=== PATIENT | female | born 1930 | race Caucasian/White ===

== ENCOUNTER 2016-12-14 04:22 | Inpatient (IN) ==
[2016-12-14] MEDS ORDERED: ZOFRAN IV ONE (04:30)
[2016-12-14 04:59] LABS: MANUAL DIFF NEEDED? NO
[2016-12-14 05:01] LABS: BASO% 0.2 % (0.0-0.8); EOS# 0.02 X1000 (0.0-0.7); EOS% 0.4 % (0.0-10.0); HEMATOCRIT 38.8 % (37.0-47.0); HEMOGLOBIN 12.6 g/dL (12.0-16.0); LYMPH# 0.44 X1000 (1.2-3.4); LYMPH% 7.8 % (20.5-51.1); MCH 29.9 PG (27-31); MCHC 32.5 g/dL (33-37); MCV 91.9 FL (81-99); MONO# 0.49 X1000 (0.11-0.59); MONO% 8.7 % (1.7-9.3); MPV 10.2 FL (7.4-10.4); NEUT% 82.9 % (42.2-75.2); PLT 114 X1000 (130-400); RBC 4.22 XMIL (4.2-5.4)
[2016-12-14 05:22] LABS: ALBUMIN 3.4 g/dL (3.5-5.0); CALCIUM 8.3 mg/dL (8.8-10.2); POTASSIUM 3.3 mmol/L (3.5-5.1); TOTAL BILIRUBIN 0.6 mg/dL (0.20-1.00)
[2016-12-14] MEDS ORDERED: NS 1,000 ML IV ONE (05:38)
--- NOTE | 2016-12-14 05:38 | PROVIDER DOCUMENTATION ---
HPI-Abdominal Pain/GI Problem - General Chief Complaint: Abdominal Pain Time Seen by Provider: 12/14/16 04:40 Source: patient, family Allergies/Adverse Reactions: Patient Allergies Allergy/AdvReac Type Severity Reaction Status Date / Time Sulfa (Sulfonamide Allergy Unknown Verified 09/06/16 00:11 Antibiotics) Home Medications: Home Medication List Medication Instructions Recorded Confirmed Last Taken Type Aspirin 1 tab PO DAILY 02/09/16 09/05/16 02/09/16 History Famotidine 20 mg PO DAILY 02/09/16 09/05/16 02/09/16 History Gemfibrozil 600 mg PO HS 02/09/16 09/05/16 02/08/16 History Levothyroxine [Synthroid] 50 microgm PO DAILY 02/09/16 09/05/16 02/09/16 History [place]-3 Fatty Acids/Fish Oil [Fish 1 cap PO DAILY 02/09/16 09/05/16 02/09/16 History Oil 1,000 mg Softgel] Ropinirole [Requip] 1 mg PO DAILY 02/09/16 09/05/16 02/08/16 History Valsartan/Hydrochlorothiazide 1 each PO DAILY 02/09/16 09/05/16 02/09/16 History [Valsartan-Hctz 160-12.5 mg Tab] Levofloxacin [Levaquin] 500 mg PO DAILY #7 tablet 09/06/16 Unknown Rx - History of Present Illness-ABD Nature of Presenting Problems: has had some 3 vomiting spells no blood no diarrhea Abdominal Pain Onset Location: reports: LLQ Pain Radiation: reports: no radiation Quality of Pain: reports: aching, fullness Severity in ED: reports: mild Onset/Duration: reports: 2 days ago Timing: reports: still present Activities at Onset: reports: sleep Exposure to sick contacts?: No Modifying Factors: improves with: other medication Associated Symptoms: reports: constipation, loss of appetite, nausea, vomiting Last BM: 2 days ago Dark Stools Present?: reports: none noticed Rectal Bleeding: reports: none # of Diarrhea Episodes: 0 Rectal Pain: reports: none # of Vomiting Episodes: 3 Emesis Description: reports: none Bruising or Bleeding Gums?: No Similar Symptoms Previously?: No Recently seen or treated by another doctor?: No Review of Systems - Adult - REVIEW OF SYSTEMS - ADULT Constitutional: reports: no symptoms reported, chills, fever Eyes: reports: no symptoms reported Ears, Nose, Mouth & Throat: reports: no symptoms reported Cardiovascular: reports: no symptoms reported Respiratory: reports: no symptoms reported Gastrointestinal: reports: see HPI Genitourinary: reports: see HPI. denies: dysuria, hematuria Musculoskeletal: reports: no symptoms reported Integumentary: reports: no symptoms reported Neurological: reports: no symptoms reported Psychiatric: reports: no symptoms reported Endocrine: reports: no symptoms reported Hematologic/Lymphatic: reports: no symptoms reported Past History - Adult - PAST MEDICAL HISTORY-ADULT Review of Records: reports: Old Records Reviewed, Medications Reviewed, Social history reviewed & non-contributory. Major Childhood Illnesses: reports: denies history Cardiovascular: reports: denies history Respiratory: reports: denies history Gastrointestinal: reports: denies history Obstetrical/Gynecological: reports: denies history Genitourinary: reports: denies history Musculoskeletal: reports: denies history Neurological: reports: denies history Endocrine/Immune: reports: denies history Other Conditions: reports: denies history - IMMUNIZATION STATUS Childhood Immunizations: See Nurse Assessment Flu Vaccine: See Nurse Assessment - FAMILY HISTORY Family History: reviewed, not pertinent Physical Exam-General - PHYSICAL EXAM-ADULT Initial Vital Signs Reviewed: Yes - CONSTITUTIONAL General Appearance: appears well - HEAD, EARS, NOSE, MOUTH & THROAT HENMT: normal ENT inspection - NECK Neck: full range of motion - RESPIRATORY Respiratory: lungs clear, no respiratory distress - CARDIOVASCULAR Cardiovascular: regular rate, rhythm - GASTROINTESTINAL (ABDOMEN) Abdominal Exam: normal bowel sounds, non tender, soft, tenderness - LYMPHATIC Lymphatic: no adenopathy - MUSCULOSKELETAL Back Exam: normal inspection, no CVA tenderness Extremity: normal range of motion DTR: ankle (R): 1+, ankle (L): 1+ - SKIN Integumentary: normal color, normal turgor - NEUROLOGIC Neurologic: grossly normal - PSYCHIATRIC Psych/Mental Status: oriented x 3 Progress - PLAN OF CARE/RESULTS Progress/Plan/Lab Results: Vital Signs - 8 hr 12/14/16 04:24 12/14/16 05:19 Temperature 100.1 F H Pulse Rate 109 H 83 Respiratory Rate 18 20 Blood Pressure 111/066 115/63 O2 Sat by Pulse Oximetry 91 L 99 Laboratory Results - last 24 hr 12/14/16 12/14/16 04:50 04:50 WBC 5.62 RBC 4.22 Hgb 12.6 Hct 38.8 MCV 91.9 MCH 29.9 MCHC 32.5 L RDW Std Deviation 15.0 H Plt Count 114 L MPV 10.2 Immature Gran % (Auto) 0.0 Neut % (Auto) 82.9 H Lymph % (Auto) 7.8 L Baker % (Auto) 8.7 Eos % (Auto) 0.4 Baso % (Auto) 0.2 Immature Gran # (Auto) 0.00 Neut # (Auto) 4.66 Lymph # (Auto) 0.44 L Baker # (Auto) 0.49 Eos # (Auto) 0.02 Baso # (Auto) 0.01 Sodium 141 Potassium 3.3 L Chloride 105 Carbon Dioxide 22 L Anion Gap 15 BUN 24 H Creatinine 1.4 H Estimated GFR/1.73 m2 36 BUN/Creatinine Ratio 17 Glucose 134 H Calculated Osmolality 287 Calcium 8.3 L Total Bilirubin 0.60 AST 24 ALT 10 Alkaline Phosphatase 84 Total Protein 6.0 L Albumin 3.4 L Globulin 3.0 Albumin/Globulin Ratio 1.0 Amylase 47 Lipase 67 H Orders Category Date Time Status Saline Loc DIRECTED Care 12/14/16 04:33 Active NPO Diet 12/14/16 04:33 Active FLAT/UPRIGHT ABD/1 VIEW CHEST [RAD] Stat Exams 12/14/16 05:32 Ordered AMYLASE [CHEM] Stat Lab 12/14/16 04:50 Completed CBC WITH ELECTRONIC DIFF [HEME] Stat Lab 12/14/16 04:50 Completed COMPREHENSIVE METABOLIC PANEL [CHEM] Stat Lab 12/14/16 04:50 Completed LIPASE [CHEM] Stat Lab 12/14/16 04:[address] W/POSS RFLX CULT [URINALYSIS] Stat Lab 12/14/16 04:55 Received Ondansetron [Zofran] Med 12/14/16 04:30 Discontinued 4 mg IV NOW ONE Result Diagrams: 12/14/16 04:50 12/14/16 04:50 - REASSESSMENT Reassessment #1 Time Reassessed: 07:06 Status: improving (Took over pt's care at 6AM. Pt was examined. Pt was resting comfortably. LLQ tenderness on exam. Two daughter's at bedside. 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 Pt denies CP and no cardiac history. CT A+P ordered.) - XRAY 1 XRAY Study: Chest, Abdomen Impression: Abnormal XRAY Interpretation: Cannot r/o LLL slight infiltrates. - CT/MRI 1 MRI Study: Abdomen, Pelvis, other (Reports pending on admission) - CONSULTS/PCP/HOSPITALIST Notification #1 *Consult/PCP/Hospitalist*: Lupe Time Discussed: 07:49 Consult Disposition: Will see in ED, Admit Departure - Departure Date of Disposition Decision: 12/14/16 Time of Disposition Decision: 07:49 DIAGNOSIS: Fever, LLQ abdominal pain Disposition: ADMITTED INPATIENT 09 Certified Medical Emergency: Emergent Condition: Stable Referrals and Follow-Ups: None,PCP [Primary Care Provider] - - Critical Care Note This patient required my direct & personal management of CC.: No Attestation - Physician/ DEVIN Attestation Patient care was provided by Advanced Practice Provider:: No
[2016-12-14] MEDS ORDERED: NS 1,000 ML ONE (05:58)
[2016-12-14 06:02] LABS: BILIRUBIN URINE NEGATIVE (NEGATIVE); BLOOD URINE NEGATIVE (NEGATIVE); CLARITY CLEAR (CLEAR); COLOR YELLOW; GLUCOSE URINE NEGATIVE (NEGATIVE); LEUKOCYTES URINE TRACE (NEGATIVE); NITRITE URINE NEGATIVE (NEGATIVE); UROBILINOGEN URINE NORMAL
[2016-12-14 06:03] LABS: PROTEIN URINE TRACE mg/dL (NEGATIVE)
[2016-12-14 06:06] LABS: URINE CAST NONE SEEN /LPF; URINE CRYSTAL NONE SEEN /HPF; URINE CULTURE PL NEEDED? YES; URINE EPITHELIAL CELLS <10 /HPF (<10); URINE RBC <10 /HPF (<10); URINE SOURCE CLEAN CATCH; URINE WBC <10 /HPF (<10)
[2016-12-14] MEDS ORDERED: TYLENOL PO ONE (07:50)
--- NOTE | 2016-12-14 08:04 | Diag Imaging Result Doc PS360 ---
RENAL STONE SEARCH - 12/14/2016 INDICATION: LLQ pain TECHNIQUE: A CT dose reduction protocol was used. COMPARISON: 11/15/2016 FINDINGS: Stable mild fibrotic changes in the lung bases. Stable irregular contour to the liver compatible with cirrhosis. Stable significant splenomegaly. Stable large renal cyst at the upper pole of the left kidney. No radiodense renal stones. No hydronephrosis or hydroureter. Gallbladder is very distended. No calcified gallstones or free fluid. No bowel obstruction or inflammation. Stable adenopathy in the gastrohepatic ligament. There are moderate degenerative changes of the spine. No acute or suspicious bony lesion. IMPRESSION: 1. Significant dilation of the gallbladder on today's exam. Correlate for possible cholecystitis. A right upper quadrant ultrasound may be helpful if this is a possibility. 2. No findings to explain left lower quadrant abdominal pain. 3. Other findings are stable from prior including cirrhosis and splenomegaly. Electronically signed by Ambrocio Kim 12/14/2016 8:01 AM
--- NOTE | 2016-12-14 08:11 | Diag Imaging Result Doc PS360 ---
FLAT/UPRIGHT ABD/1 VIEW CHEST - 12/14/2016 INDICATION: Abdominal pain TECHNIQUE: Three views COMPARISON: 09/06/2016, 02/09/2016 FINDINGS: There is some stable mild pulmonary fibrosis in the lung bases. No new or focal infiltrates. No pneumothorax or pleural effusion. Heart size and pulmonary vascularity is top normal. There is a nonobstructive bowel gas pattern. No free air or abnormal calcifications. IMPRESSION: No acute disease or change from prior. Electronically signed by Ambrocio Kim 12/14/2016 8:09 AM
[2016-12-14] MEDS ORDERED: VANCOMYCIN IV PER PHARMACY MISC SCH ×2 (08:15→09:06)
[2016-12-14] MEDS: NS 1,000 ML IV SCH ×2 (08:24→21:50)
[2016-12-14] MEDS ORDERED: VANCOMYCIN 1,500 MG in NS 250 ML IV ONE (09:00)
[2016-12-14] MEDS ORDERED: ZOFRAN IV PRN (09:06)
[2016-12-14] MEDS ORDERED: NS 1,000 ML IV SCH (09:06)
--- NOTE | 2016-12-14 16:50 | Extremity Venous Study ---
EXAM: Venous U/S Bilateral Legs INDICATION: LLE edema, calf pain TECHNIQUE: COMPARISON: None. FINDINGS: There are no discrete filling defects identified in the right or left lower extremity deep venous systems. There is normal Doppler flow, compressibility, and augmentation involving the femoral vein, superficial femoral vein, popliteal vein, posterior tibial vein, and peroneal veins, bilaterally. The right and left great saphenous veins are grossly patent. IMPRESSION: No evidence of deep venous thrombosis. Electronically signed by Ronak Sanchez 12/14/2016 4:48 PM
[2016-12-15] MEDS: SYNTHROID PO SCH (06:11)
[2016-12-15 06:47] LABS: HEMATOCRIT 34.1 % (37.0-47.0); HEMOGLOBIN 10.8 g/dL (12.0-16.0); MCH 29.8 PG (27-31); MCHC 31.7 g/dL (33-37); MCV 94.2 FL (81-99); MPV 10.6 FL (7.4-10.4); RBC 3.62 XMIL (4.2-5.4)
[2016-12-15 07:05] LABS: ALBUMIN 2.6 g/dL (3.5-5.0); POTASSIUM 3.3 mmol/L (3.5-5.1); TOTAL BILIRUBIN 0.7 mg/dL (0.20-1.00); TOTAL PROTEIN 5.2 g/dL (6.3-8.3)
--- NOTE | 2016-12-15 08:34 | PROGRESS NOTE ---
DATE: 12/15/2016 SUBJECTIVE: The patient notes that she may be feeling a little bit better. Denies any chest pain or palpitations currently. Denies any fevers or chills. OBJECTIVE: Vital Signs: Reviewed. She is afebrile, temp 98 degrees, pulse 58, respiratory rate 18, BP 104/38. General: Patient is awake, alert. Currently in no respiratory distress. HEENT: Normocephalic, atraumatic. Neck: Supple. CV: Regular rate. Chest: Clear. Abdomen: Soft, nondistended. Extremities: Moves all extremities. Neurologic: No focal changes. Skin: Seems to have a little bit less erythema on her lower extremities. No pain. Nontender to the touch. ASSESSMENT: 1. Moderate protein calorie malnutrition. 2. Cellulitis. 3. Left lower quadrant abdominal pain, appears to be improving. 4. Abnormal gallbladder by ultrasound, although patient has no complaints of right upper quadrant pain. PLAN: We will continue antibiotics. Continue to follow. Further orders as needed. cc: Pablo Andrade MD
[2016-12-15] MEDS ORDERED: [UNRECOGNIZED DRUG - OTHER] PO SCH (09:00)
[2016-12-15] MEDS: REQUIP PO SCH (09:04)
[2016-12-15] MEDS: VITAMIN B-12 PO SCH (09:04)
[2016-12-15] MEDS: ASPIRIN PO SCH (09:04)
[2016-12-15] MEDS: NS 1,000 ML IV SCH (16:22)
[2016-12-16] MEDS: NS 1,000 ML IV SCH (05:48)
[2016-12-16] MEDS: SYNTHROID PO SCH (06:22)
[2016-12-16] MEDS: VITAMIN B-12 PO SCH (09:01)
[2016-12-16] MEDS: REQUIP PO SCH (09:01)
[2016-12-16] MEDS: KEFLEX PO SCH ×2 (09:01→20:17)
[2016-12-16] MEDS: ASPIRIN PO SCH (09:01)
--- NOTE | 2016-12-16 09:01 | PROGRESS NOTE ---
DATE: 12/16/2016 SUBJECTIVE: The patient notes she is feeling a lot better this morning. Denies any abdominal pain. States her leg is feeling better. Denies any fevers or chills. OBJECTIVE: Vital Sign: Temp 98, pulse 55, respiratory rate 18, BP 132/48, saturation 100% on 2 L. General: The patient is awake and alert. She is currently in no respiratory distress. Pleasant to talk with. Neck: Supple. CV: Regular rate. Chest: Clear. Abdomen: Soft, nondistended. No tenderness. Extremities: Moves all extremities. Skin: She has much less erythema on the left lower extremity. ASSESSMENT: 1. Abdominal pain, appears resolved. 2. Cellulitis, left lower extremity, improved. 3. Moderate protein calorie malnutrition, stable. PLAN: Will continue antibiotics. Continue to follow. Hopefully home in the next 1 to 2 days. cc: Pablo Andrade MD
--- NOTE | 2016-12-16 09:02 | HISTORY AND PHYSICAL ---
CHIEF COMPLAINT: Abdominal pain, nausea and vomiting. HISTORY OF PRESENT ILLNESS: This is an 86-year-old female who presented to the emergency room complaining of abdominal pain, nausea and vomiting. The patient is very vague about the pain. She is vague about description of the pain. In fact, during my exam she complained of some slight epigastric tenderness to palpation only. Of note, her abdomen was soft and nondistended with good bowel sounds. She does state that she vomited. She reports 3 spells, although she is very vague over how long of a period these 3 spells were. She denies any black or bloody vomitus or stools. She did state she had a bowel movement 2 days prior which was normal. She has had regular bowel movements. She does state that she has had some waxing and waning left lower quadrant aching or fullness. On review of her chart, this has been a pretty well consistent complaint back to what looks like [address] scans revealing hepatomegaly, splenomegaly, probably early cirrhosis, and interstitial scarring and fibrosis in the lung bases. She did have a gastric emptying study in October of 2016 with a T1/2 calculated at 1 hour and 40 minutes, which is just slightly above normal range. Her white count was within normal limits. She was afebrile. In the emergency room she was given 1 L of fluid as well as Tylenol and Zofran and she is being admitted for further evaluation and treatment. PAST MEDICAL HISTORY: Diabetes mellitus, hyperlipidemia, hypertension, hypothyroid, history of pneumonia, splenomegaly, hepatomegaly. PAST SURGICAL HISTORY: Denies. SOCIAL HISTORY: Denies alcohol, tobacco, or illicit drug use. ALLERGIES: Sulfa which causes an unknown reaction. HOME MEDICATIONS: B12 2500 mcg daily, Darvon 65 daily, aspirin 81 mg daily, Synthroid 50 mcg daily, Requip 1 mg daily. REVIEW OF SYSTEMS: A 14 point review of systems is discussed with patient with pertinent positives stated in the HPI. She denied chest pain, palpitations, dizziness, syncope, shortness of breath, PND, orthopnea, fever, chills, black or bloody vomitus, black or bloody stools, any constipation, diarrhea, or any problems. PHYSICAL EXAMINATION: GENERAL: This is an 86-year-old female who is lying in the bed in no distress. VITAL SIGNS: Blood pressure is 142/42 with a heart rate of 58, respirations 19, temperature is 98.4 degrees oral with O2 saturations of 96-100 on 2 L nasal cannula. HEENT: Head is normocephalic, atraumatic. Pupils equal, round, and reactive to light. EOMs are intact. Sclerae anicteric. Mucous membranes are dry. NECK: Supple. Trachea midline. CARDIOVASCULAR: Regular rate and rhythm. S1, S2 appreciated. No rubs, murmurs, or gallops. PULMONARY: Breath sounds are clear. Chest rises and falls symmetrically with respiration. No increased work of breathing noted. GASTROINTESTINAL: Abdomen is soft and nondistended with a little tenderness at the epigastric area to palpation. Bowel sounds in all 4 quadrants. EXTREMITIES: No clubbing, cyanosis, or edema. Calves are nontender. Pulses are palpable x4. MUSCULOSKELETAL: Good range of motion of joints. NEUROLOGIC: She is alert and oriented x3. Cranial nerves 2 through 12 are grossly intact. EXTREMITIES: No clubbing or cyanosis. She does have some trace pretibial edema to her lower extremities with petechiae and some warmth and redness to her left lower extremity about mid recio down to the ankle. She does state this is a new finding over the last 2-3 days. DIAGNOSTICS: WBC is 5.6 with hemoglobin 12.6, hematocrit 38.8, and platelets of 114,000. INR is 1. Sodium 141, potassium 3.3, BUN is 24, creatinine 1.4 with a glucose of 134. Urinalysis is essentially negative. Abdominal x-ray reveals no acute disease or change from prior to 02/09/2016 with some stable mild pulmonary fibrosis in the lung bases. No new focal infiltrates and no pneumothorax or pleural effusion. Heart size and pulmonary vascularity are top normal with a nonobstructive bowel gas pattern and no free air or abnormal calcifications. Blood cultures and urine culture are pending. ASSESSMENT: 1. Moderate protein calorie malnutrition. 2. Cellulitis of left lower extremity. 3. Abdominal pain. 4. Abnormal gallbladder by ultrasound, although the patient has no complaints. 5. Hypokalemia. 6. Acute kidney injury most likely secondary to dehydration. 7. Diabetes mellitus. 8. Hypothyroidism. PLAN: She will be admitted to the hospital and placed on telemetry. She will be placed on a diabetic diet. We will pattern blood glucose with sliding scale insulin. We will identify her home medications and continue as appropriate. Blood cultures and urine cultures were obtained. We will give 1 gram of vancomycin. We will obtain a lower extremity Doppler. We will obtain a TSH. Further treatment is pending hospital course. Dictated by PAULA De La Rosa for Pablo Andrade MD cc: PAULA De La Rosa MD
[2016-12-16] MEDS: VANCOMYCIN 1,350 MG in NS 250 ML IV SCH (10:19)
--- NOTE | 2016-12-16 14:26 | VASCULAR LAB ---
PROCEDURE NAME: Arterial Bilateral Legs - 12/14/2016 REQUESTING PHYSICIAN: Lupe. ARCHITECTURAL PROJECT CAPTAIN: Natalia. INDICATION: Ulcer. FINDINGS: Segmental pressures are as follows: Right brachial 130, left 121. Right distal thigh 159, left 168. Right popliteal 181, left 195. Right dorsalis pedis 149, left . Posterior tibial 154, left 157. Right great toe 55, left 59. Right KEKE 1.18, left 1.21. Right TBI 0.42, left 0.45. Waveform analysis: Waveforms appear to be diminished bilaterally at the level of toes but there is a monophasic waveform noted, again this starts to be diminished at the level of the ankle bilaterally. INTERPRETATION: Likely peripheral vascular disease with falsely elevated ABIs noted bilaterally. This likely is a distal peripheral vascular disease starting at the level of the calf distally. cc: MD Jennifer Chilel CRNP
[2016-12-16] MEDS ORDERED: CITRATE OF MAGNESIA PO ONE (15:23)
[2016-12-16] MEDS ORDERED: ZOFRAN ODT PO PRN (18:40)
[2016-12-17] MEDS: SYNTHROID PO SCH (06:07)
[2016-12-17] MEDS: VITAMIN B-12 PO SCH (08:55)
[2016-12-17] MEDS: REQUIP PO SCH (08:56)
[2016-12-17] MEDS: KEFLEX PO SCH ×2 (08:56→20:32)
[2016-12-17] MEDS: ASPIRIN PO SCH (08:56)
--- NOTE | 2016-12-17 13:08 | PROGRESS NOTE ---
DATE: 12/17/2016 SUBJECTIVE: Patient states she is feeling well better today. She has no abdominal pain or leg pain. No fevers or chills. OBJECTIVE: Vital Signs: Blood pressure is 133/42 with a heart rate of 58, respirations are 18, temperature is 98.9 degrees oral with room air sats 92-94%. Cardiovascular: Regular rate and rhythm. S1, S2 appreciated. Pulmonary: Breath sounds are clear. No increased work of breathing noted. Gastrointestinal: Abdomen is soft, nontender, nondistended. Bowel sounds in all 4 quadrants. Extremities: No clubbing, cyanosis, or edema. She does have less erythema noted on the left lower extremity. ASSESSMENT AND PLAN: 1. Abdominal pain resolved. 2. Cellulitis left lower extremity improving. 3. Moderate protein calorie malnutrition. Stable. 4. Diabetes mellitus. Stable. 5. Acute kidney injury. This is secondary to dehydration. Stable. 6. Hypothyroidism. We will continue her current regimen. We will have the patient out of bed more. Hopefully home in the next day or 2. Dictated by PAULA De La Rosa for Pablo Andrade MD cc: PAULA De La Rosa MD
--- NOTE | 2016-12-17 13:29 | Diag Imaging Result Doc PS360 ---
US ABDOMEN-COMPLETE - 12/17/2016 INDICATION: eval GB TECHNIQUE: Rogers scale, color Doppler, and duplex evaluation of the abdomen was performed. COMPARISON: None FINDINGS: The liver appears normal in size and echotexture. No focal masses are appreciated. The IVC and aorta appear normal. The pancreas is unremarkable. The gallbladder is free of stones and sludge has a normal caliber wall. It appears mildly distended. The common bile duct measures 6 mm mm. The portal vein is patent with hepatopetal flow. There is mild splenomegaly. The spleen measures 14 x 6 x 14 mm.. The kidneys demonstrate mild cortical thinning bilaterally which may indicate medical renal disease. There is a 9 cm simple cyst upper pole left kidney. There is no hydronephrosis. IMPRESSION: 1.Mild splenomegaly. 2.Large left renal cyst. 3.Mildly prominent gallbladder. No cholelithiasis. Electronically signed by Lata Younger 12/17/2016 1:27 PM
--- NOTE | 2016-12-17 17:05 | PROGRESS NOTE ---
DATE: 12/17/2016 SUBJECTIVE: The patient states overall she is feeling better. Denies any chest pain, palpitations. States her abdominal pain is better. Denies any pain in her leg. OBJECTIVE: Vital Signs: Reviewed and stable. General: She is awake, alert. She is in no respiratory distress. She is pleasant to talk with. Neck: Supple. Cardiovascular: Regular rate. Chest: Clear. Abdomen: Soft, relatively nondistended, nontender. No masses. Positive bowel sounds. Extremities: Moves all extremities. Neurologic: No changes. ASSESSMENT: 1. Abdominal pain. Her left lower quadrant pain appears improved. Her recent CT suggested the need for an ultrasound on her abdomen due to an abnormal gallbladder. We will keep her n.p.o. this morning, check an ultrasound of the gallbladder. Hopefully, she can discharge home soon. 2. Fever. Her temperature has gone back up to 100.3. Uncertain etiology, that is the reason we are rechecking her gallbladder, to see if this has any effect. 3. Urinary tract infection. 4. Lower extremity cellulitis, resolved. 5. Left lower quadrant pain, resolved. PLAN: As noted, check an ultrasound of her abdomen, and continue to follow. cc: Pablo Andrade MD
[2016-12-18] MEDS: SYNTHROID PO SCH (06:27)
[2016-12-18 08:04] VITALS: BP 165/50
[2016-12-18] MEDS: KEFLEX PO SCH (08:27)
[2016-12-18] MEDS: ASPIRIN PO SCH (08:27)
[2016-12-18] MEDS: VITAMIN B-12 PO SCH (08:27)
[2016-12-18] MEDS: REQUIP PO SCH (08:28)
[2016-12-18] MEDS: VANCOMYCIN 1,350 MG in NS 250 ML IV SCH (10:33)
--- NOTE | 2016-12-18 16:29 | DISCHARGE SUMMARY ---
ADMISSION DATE: 12/14/2016 DISCHARGE DATE: 12/18/2016 DIAGNOSES: 1. Abdominal pain resolved. 2. Fever resolved. 3. Lower extremity cellulitis resolved. 4. Left lower quadrant pain resolved. 5. Hypokalemia resolved. 6. Acute kidney injury resolved. 7. Diabetes mellitus. 8. Hypothyroidism. DIAGNOSTICS: 12/14/2016 abdominal x-ray revealed no acute disease. 12/14/[address] revealed significant dilatation of the gallbladder on today's exam. Recommend a right upper quadrant ultrasound. No findings to explain the left lower quadrant abdominal pain. Stable cirrhosis and splenomegaly. Gallbladder is distended, No calcified gallstones or free fluid. 12/14/2016 extremity arterial study revealed likely peripheral vascular disease with falsely elevated ABIs noted likely a distal peripheral vascular disease starting level of the calf distally. 12/14/2016 extremity venous study revealed no deep vein thrombosis in either extremity. 12/17/2016 abdominal ultrasound revealed splenomegaly, large left renal cyst, mildly prominent gallbladder, no cholelithiasis. Microbiology. Blood cultures x2 revealed no growth after 48 hours. Urine culture revealed no growth. HOSPITAL COURSE: Ms. Boucher presented to the emergency room with abdominal pain, nausea, vomiting. She had abdominal pain resolved, nausea, vomiting resolved with admission. CT scan as well as right upper quadrant ultrasound revealed dilated gallbladder with no cholelithiasis, her abdomen is nondistended and nontender. She has been eating with no complaints of nausea or vomiting. She was noted to have some petechiae and warmth and redness to her left lower extremity from about midshin down to ankle and a family member stated this is a new finding over last 2-3 days. Venous ultrasounds as well as the arterial Dopplers were performed, there was no evidence of clot. Arterial Doppler revealed some maybe peripheral vascular disease. She was given Keflex, IV vancomycin as well as p.o. Keflex. This has resolved. Thankfully she is well better and she is ready to go home. DISCHARGE PHYSICAL EXAMINATION: Cardiovascular: Regular rate and rhythm S1, S2 appreciated. Pulmonary: Breath sounds are clear. No increased work of breathing noted. Gastrointestinal: Abdomen soft, nontender, nondistended with bowel sounds in all 4 quadrants. Extremities: No clubbing, cyanosis or edema, calves are nontender. Pulses are palpable x4. DISCHARGE MEDICATIONS: Vitamin B12 2500 mcg daily, Darvon 65 mg daily, aspirin daily, Synthroid 50 mcg daily, [place]-3 fatty acids 1 cap daily, Requip 1 mg daily, Keflex 500 mg p.o. q.12 hours for 4 days. FOLLOWUP: She is to follow up her primary care physician in the next 1-2 weeks sooner if needed. She is being discharged home in stable condition with family members. TIME SPENT: This is a greater than 30 minute discharge. Dictated by PAULA De La Rosa for Pablo Andrade MD cc: PAULA De La Rosa MD
== END 2016-12-18 11:30 | disposition home health service (06) ==
LOC: P.MEDSURG 04:22 → P.ED 04:22 → OBSVTOIN 08:52
PROVIDERS: ADMIT Family Medicine; ATTEND Family Medicine

== ENCOUNTER 2018-08-12 18:24 | Inpatient (IN) ==
--- NOTE | 2018-08-12 19:05 | Diag Imaging Result Doc PS360 ---
EXAM: CHEST-2 VIEWS - 08/12/2018 HISTORY: cough copd fever TECHNIQUE: Chest two views COMPARISON: 12/01/2017 FINDINGS: Heart size is normal. There is a tiny right pleural effusion which has decreased. There is a small left pleural effusion which has decreased. There is a tiny loculated pneumothorax component associated with the chronic left pleural effusion. There is mild prominence of lower lung interstitial markings which is decreased. There is no dense consolidation seen. IMPRESSION: Chronic pleural effusions, largest on the left, which have decreased. There is a tiny loculated pneumothorax component associated with the left pleural effusion. Mild prominence of lower lung interstitial markings which is decreased. No dense consolidation. Electronically signed by Darek Butler 08/12/2018 7:03 PM
[2018-08-12 19:49] LABS: BILIRUBIN URINE NEGATIVE (NEGATIVE); BLOOD URINE NEGATIVE (NEGATIVE); CLARITY CLEAR (CLEAR); COLOR YELLOW; GLUCOSE URINE NEGATIVE (NEGATIVE); KETONE URINE NEGATIVE (NEGATIVE); LEUKOCYTES URINE NEGATIVE (NEGATIVE); NITRITE URINE NEGATIVE (NEGATIVE); PROTEIN URINE NEGATIVE (NEGATIVE); UROBILINOGEN URINE NORMAL
[2018-08-12 19:51] LABS: BASO# 0.03 X1000 (0.0-0.2); BASO% 1.3 % (0.0-0.8); EOS# 0.01 X1000 (0.0-0.7); EOS% 0.4 % (0.0-10.0); HEMATOCRIT 32.3 % (37.0-47.0); HEMOGLOBIN 10.2 g/dL (12.0-16.0); LYMPH% 59.6 % (20.5-51.1); MCH 29.5 PG (27-31); MCHC 31.6 g/dL (33-37); MCV 93.4 FL (81-99); MONO# 0.45 X1000 (0.11-0.59); MONO% 19.1 % (1.7-9.3); MPV 10.4 FL (7.4-10.4); NEUT# 0.46 X1000 (1.4-6.5); NEUT% 19.6 % (42.2-75.2); PLT 94 X1000 (130-400); RBC 3.46 XMIL (4.2-5.4); RDW 15.6 % (11.5-14.5); WBC 2.35 X1000 (4.8-10.8)
[2018-08-12 19:57] LABS: LYMPHS 60 % (21-51); MONO 16 % (1-9); SEGS 24 % (42-75)
[2018-08-12 19:58] LABS: URINE RBC <10 /HPF (<10); URINE SOURCE CLEAN CATCH
[2018-08-12 20:04] LABS: ALBUMIN 3.4 g/dL (3.5-5.0); CALCIUM 8.4 mg/dL (8.8-10.2); POTASSIUM 4.5 mmol/L (3.5-5.1); TOTAL BILIRUBIN 0.3 mg/dL (0.20-1.00); TOTAL PROTEIN 6.2 g/dL (6.3-8.3)
[2018-08-12] MEDS ORDERED: MAXIPIME 2 GM in NS 100 ML IV ONE (20:11)
--- NOTE | 2018-08-12 20:22 | PROVIDER DOCUMENTATION ---
HPI-Fever - General Chief Complaint: Fever Stated Complaint: FEVER Time Seen by Provider: 08/12/18 18:58 Source: patient, family Allergies/Adverse Reactions: Patient Allergies Allergy/AdvReac Type Severity Reaction Status Date / Time Sulfa (Sulfonamide Allergy Unknown Verified 11/16/17 13:01 Antibiotics) Home Medications: Home Medication List Medication Instructions Recorded Confirmed Last Taken Type Aspirin 81 mg PO DAILY 02/09/16 11/29/17 11/16/17 History Levothyroxine [Synthroid] 50 microgm PO DAILY@0700 02/09/16 11/29/17 11/16/17 History Harlan-3 Fatty Acids/Fish Oil [Fish 1 cap PO DAILY 02/09/16 11/29/17 11/16/17 History Oil 1,000 mg Softgel] Pantoprazole [Protonix] 40 mg PO DAILY@0700 06/06/17 11/29/17 11/16/17 History Potassium Chloride 10 meq PO DAILY 06/06/17 11/29/17 11/16/17 History Cyanocobalamin (Vitamin B-12) 2,500 mcg SL DAILY 08/16/17 11/29/17 11/16/17 History [B-12] Albuterol 2.5MG/Ipratrop 0.5MG 1 vial INH Q4H PRN PRN 11/16/17 11/29/17 11/16/17 History [Duoneb (A & A)] Famotidine 20 mg PO BID 11/16/17 11/29/17 11/16/17 History Magnesium Hydroxide [Milk of 30 ml PO QAM PRN PRN 11/16/17 11/29/17 Unknown History Magnesia] Apixaban [Eliquis] 2.5 mg PO BID #120 tab 11/21/17 11/29/17 Unknown Rx Diltiazem C.d. [Cardizem Cd] 120 mg PO DAILY #120 cap 11/21/17 11/29/17 Unknown Rx Furosemide [Lasix] 40 mg PO DAILY #90 tab 11/21/17 11/29/17 Unknown Rx Levofloxacin [Levaquin] 500 mg PO DAILY #5 tab 12/03/17 Unknown Rx - History of Present Illness-Fever Nature of Presenting Problem: Patient is a 87 year old white female with history of pancytopenia, followed by Dr. De Leon, and history of pneumonia who presents with low grade fever of 99.3, cough, and shortness of breath since last night. Also followed by Dr. Andrade. Review of Systems - Adult - REVIEW OF SYSTEMS - ADULT Constitutional: reports: chills, fever Eyes: reports: no symptoms reported Ears, Nose, Mouth & Throat: reports: throat pain Cardiovascular: denies: chest pain Respiratory: reports: cough. denies: excessive sputum production Gastrointestinal: reports: see HPI. denies: vomiting Genitourinary: denies: dysuria Musculoskeletal: reports: see HPI Integumentary: denies: rash Neurological: reports: no symptoms reported Psychiatric: reports: no symptoms reported Endocrine: reports: no symptoms reported Hematologic/Lymphatic: reports: no symptoms reported Allergic/Immunologic: reports: no symptoms reported All Other Systems: Reviewed and Negative Past History - Adult - PAST MEDICAL HISTORY-ADULT Review of Records: reports: Old Records Reviewed, Nursing Assessment Review, Medications Reviewed, Social history reviewed & non-contributory. Major Childhood Illnesses: reports: denies history, other (pancytopenia) Cardiovascular: reports: CHF, HTN, hyperlipidemia Respiratory: reports: pneumonia Gastrointestinal: reports: denies history Obstetrical/Gynecological: reports: denies history Genitourinary: reports: denies history Musculoskeletal: reports: denies history Neurological: reports: denies history Psychiatric: reports: denies history Endocrine/Immune: reports: Diabetes, thyroid disorder Other Conditions: reports: denies history - PRIOR SURGERIES/PROCEDURES Surgical/Procedure History: reports: none - IMMUNIZATION STATUS Childhood Immunizations: See Nurse Assessment Flu Vaccine: See Nurse Assessment - FAMILY HISTORY Family History: reviewed, not pertinent Physical Exam-General - PHYSICAL EXAM-ADULT Initial Vital Signs Reviewed: Yes - CONSTITUTIONAL General Appearance: alert, no apparent distress, cachetic - EYES Eyes: other (clear) - HEAD, EARS, NOSE, MOUTH & THROAT HENMT: moist mucous membranes, normal ENT inspection, TMs normal - NECK Neck: non-tender, full range of motion, supple - RESPIRATORY Respiratory: decreased breath sounds, wheezing (notable expiratory wheezes over right lung base) - CARDIOVASCULAR Cardiovascular: regular rate, rhythm - GASTROINTESTINAL (ABDOMEN) Abdominal Exam: soft, no pulsatile mass, tenderness (vague tenderness). negative: guarding, rebound - LYMPHATIC Lymphatic: no adenopathy, axilla node tender - MUSCULOSKELETAL Back Exam: normal inspection, no CVA tenderness Extremity: normal range of motion, non-tender Peripheral Pulses: radial (R): 2+, radial (L): 2+ - SKIN Integumentary: normal color, normal turgor, warm/dry - NEUROLOGIC Neurologic: grossly normal - PSYCHIATRIC Psych/Mental Status: anxious Progress - PLAN OF CARE/RESULTS Progress/Plan/Lab Results: Vital Signs - 8 hr 08/12/18 18:31 08/12/18 19:28 Temperature 99.6 F 98.8 F Pulse Rate 63 61 Respiratory Rate 18 20 Blood Pressure 104/69 147/65 O2 Sat by Pulse Oximetry 97 93 L Laboratory Results - last 24 hr 08/12/18 08/12/18 08/12/18 19:25 19:25 19:35 WBC 2.35 L RBC 3.46 L Hgb 10.2 L Hct 32.3 L MCV 93.4 MCH 29.5 MCHC 31.6 L RDW Std Deviation 15.6 H Plt Count 94 L MPV 10.4 Immature Gran % (Auto) 0.0 Neut % (Auto) 19.6 L Lymph % (Auto) 59.6 H [place] % (Auto) 19.1 H Eos % (Auto) 0.4 Baso % (Auto) 1.3 H Immature Gran # (Auto) 0.00 Neut # (Auto) 0.46 L* Lymph # (Auto) 1.40 [place] # (Auto) 0.45 Eos # (Auto) 0.01 Baso # (Auto) 0.03 Segmented Neutrophils 24 L Lymphocytes 60 H Monocytes 16 H Sodium 142 Potassium 4.5 Chloride 102 Carbon Dioxide 30 Anion Gap 10 BUN 33 H Creatinine 1.0 H Estimated GFR/1.73 m2 52 BUN/Creatinine Ratio 33 Glucose 96 Calculated Osmolality 290 Calcium 8.4 L Total Bilirubin 0.30 AST 39 H ALT 17 Alkaline Phosphatase 218 H Total Protein 6.2 L Albumin 3.4 L Globulin 3.0 Albumin/Globulin Ratio 1.0 Urine Source CLEAN CATCH Urine Color YELLOW Urine Clarity CLEAR Urine pH 5.0 Ur Specific [place] 1.010 Urine Protein NEGATIVE Urine Ketones NEGATIVE Urine Blood NEGATIVE Urine Nitrite NEGATIVE Urine Bilirubin NEGATIVE Urine Urobilinogen NORMAL Urine Microscopic RBC <10 Urine WBC NEGATIVE Urine Glucose NEGATIVE Influenza A (Rapid) Influenza B (Rapid) Group A Strep Rapid 08/12/18 08/12/18 20:57 20:57 WBC RBC Hgb Hct MCV MCH MCHC RDW Std Deviation Plt Count MPV Immature Gran % (Auto) Neut % (Auto) Lymph % (Auto) [place] % (Auto) Eos % (Auto) Baso % (Auto) Immature Gran # (Auto) Neut # (Auto) Lymph # (Auto) [place] # (Auto) Eos # (Auto) Baso # (Auto) Segmented Neutrophils Lymphocytes Monocytes Sodium Potassium Chloride Carbon Dioxide Anion Gap BUN Creatinine Estimated GFR/1.73 m2 BUN/Creatinine Ratio Glucose Calculated Osmolality Calcium Total Bilirubin AST ALT Alkaline Phosphatase Total Protein Albumin Globulin Albumin/Globulin Ratio Urine Source Urine Color Urine Clarity Urine pH Ur Specific [place] Urine Protein Urine Ketones Urine Blood Urine Nitrite Urine Bilirubin Urine Urobilinogen Urine Microscopic RBC Urine WBC Urine Glucose Influenza A (Rapid) NEGATIVE Influenza B (Rapid) NEGATIVE Group A Strep Rapid NEGATIVE Orders Category Date Time Status Admit - [facility] Routine AdmDCTranf 08/12/18 20:41 Active Activity - Strict Bedrest ORDERED Care 08/12/18 20:41 Active Misc. NRSG Communication Order DIRECTED Care 08/12/18 20:36 Active Resuscitation Status Routine Care 08/12/18 20:41 Ordered Saline Loc DIRECTED Care 08/12/18 20:41 Active Vital Signs Order Q 4-HR ASSESS Care 08/12/18 20:41 Active Z-Document. for Tele Applied ORDERED Care 08/12/18 20:43 Active Neutropenic Diet Diet 08/12/18 20:36 Active CHEST-2 VIEWS [RAD] Stat Exams 08/12/18 18:35 Completed BLOOD CULTURE [BLDCUL] Stat Lab 08/12/18 20:44 Ordered CBC WITH ELECTRONIC DIFF [HEME] DAILY Lab 08/13/18 06:00 Ordered CBC WITH ELECTRONIC DIFF [HEME] DAILY Lab 08/14/18 06:00 Ordered CBC WITH ELECTRONIC DIFF [HEME] Stat Lab 08/12/18 19:25 Completed CMP [COMPREHENSIVE METABOLIC PANEL] [CHEM] Stat Lab 08/12/18 19:[address] Stat Lab 08/12/18 20:[address] Stat Lab 08/12/18 20:57 Completed LDH [CHEM] Stat Lab 08/12/18 19:25 Received urinalysis [URINALYSIS PL W/POSS RFLX CULT] [URINALYSIS Lab 08/12/18 19:35 Completed ] Stat CefEPIME [Maxipime] 2 gm Med 08/12/18 20:11 Discontinued 0.9% Sodium Chloride Inj [Ns] 100 ml IV NOW CefEPIME [Maxipime] 2 gm Med 08/12/18 20:45 Active 0.9% Sodium Chloride Inj [Ns] 100 ml IV Q12H Filgrastim [Neupogen] Med 08/12/18 20:32 Discontinued 300 microgm SUBQ NOW ONE Vancomycin 1 gm/Ns Med 08/12/18 20:34 Discontinued 1 gm in 250 ml IV NOW Oxygen Device Routine Oth 08/12/18 20:42 Active Telemetry [OM.EQ] Routine Oth 08/12/18 20:41 Active Transfer/Admit Order [TRANSFER] Routine Transfer 08/12/18 20:46 Ordered Result Diagrams: 08/12/18 19:25 08/12/18 19:25 - CONSULTS/PCP/HOSPITALIST Notification #1 *Consult/PCP/Hospitalist*: Dr. De Leon, HEM/ONC Time Discussed: 20:30 Reason/Comments: admit to hospitalist,give neupogen 300mcg, IV antibiotics Consult Disposition: Admit #2 Consult: Dr Andrade Time Discussed: 21:30 Consult Disposition: Admit Departure - Departure Date of Disposition Decision: 08/12/18 Time of Disposition Decision: 21:34 DIAGNOSIS: Pleural effusion, Pancytopenia Neutropenia Qualifiers: Neutropenia type: unspecified Qualified Code(s): D70.9 - Neutropenia, unspecified Fever Qualifiers: Fever type: unspecified Qualified Code(s): R50.9 - Fever, unspecified Disposition: ADMITTED INPATIENT 09 Certified Medical Emergency: Emergent Condition: Stable - Critical Care Note This patient required my direct & personal management of CC.: No Attestation - Physician/ DEVIN Attestation Patient care was provided by Advanced Practice Provider:: No The physician spent face to face time with patient:: Yes Advanced Practice Provider documentation review:: Supervising physician onsite and consulted in the evaluation and care of this patient. The physician did have a face to face encounter with the patient.
[2018-08-12] MEDS ORDERED: NEUPOGEN SUBQ ONE (20:32)
[2018-08-12] MEDS ORDERED: VANCOMYCIN 1 GM/NS 1 GM/250 ML IVPB IV ONE (20:34)
[2018-08-12] MEDS: MAXIPIME 2 GM in NS 100 ML IV SCH (20:58)
[2018-08-12 21:32] LABS: INFLUENZA A NEGATIVE (NEGATIVE); INFLUENZA B NEGATIVE (NEGATIVE)
[2018-08-13 07:56] LABS: BASO# 0.01 X1000 (0.0-0.2); BASO% 0.2 % (0.0-0.8); EOS# 0.02 X1000 (0.0-0.7); EOS% 0.3 % (0.0-10.0); HEMATOCRIT 29.6 % (37.0-47.0); HEMOGLOBIN 9.4 g/dL (12.0-16.0); IMM GRAN# 0.01 X1000 (0.0-0.04); IMM GRAN% 0.2 % (0.0-0.5); LYMPH% 25.3 % (20.5-51.1); MCH 29.3 PG (27-31); MCHC 31.8 g/dL (33-37); MCV 92.2 FL (81-99); MONO# 0.63 X1000 (0.11-0.59); MPV 10.4 FL (7.4-10.4); NEUT# 4.06 X1000 (1.4-6.5); PLT 83 X1000 (130-400); RBC 3.21 XMIL (4.2-5.4); RDW 15.4 % (11.5-14.5); WBC 6.33 X1000 (4.8-10.8)
[2018-08-13] MEDS: MAXIPIME 2 GM in NS 100 ML IV SCH ×2 (08:34→20:20)
[2018-08-13] MEDS ORDERED: GRANIX SUBQ ONE (09:30)
[2018-08-13 12:15] LABS: BASO# 0.02 X1000 (0.0-0.2); BASO% 0.2 % (0.0-0.8); EOS# 0.02 X1000 (0.0-0.7); EOS% 0.2 % (0.0-10.0); HEMATOCRIT 28.1 % (37.0-47.0); HEMOGLOBIN 8.9 g/dL (12.0-16.0); IMM GRAN# 0.07 X1000 (0.0-0.04); IMM GRAN% 0.7 % (0.0-0.5); LYMPH# 2.43 X1000 (1.2-3.4); LYMPH% 24.3 % (20.5-51.1); MCH 29.5 PG (27-31); MCHC 31.7 g/dL (33-37); MONO# 0.89 X1000 (0.11-0.59); MONO% 8.9 % (1.7-9.3); MPV 10.7 FL (7.4-10.4); NEUT# 6.56 X1000 (1.4-6.5); NEUT% 65.7 % (42.2-75.2); PLT 78 X1000 (130-400); RBC 3.02 XMIL (4.2-5.4); RDW 15.6 % (11.5-14.5); WBC 9.99 X1000 (4.8-10.8)
[2018-08-13] MEDS ORDERED: DUONEB (A & A) INH PRN (14:50)
[2018-08-13] MEDS ORDERED: NS 1,000 ML IV ONE (14:50)
[2018-08-13] MEDS ORDERED: VANCOMYCIN IV PER PHARMACY MISC SCH (15:00)
[2018-08-13 15:17] LABS: IRON SATURATION 20 %; TIBC 147 ug/dL; TOTAL IRON 29 ug/dL (49-151); UNBOUND IRON 118 ug/dL (112-346)
[2018-08-13] MEDS ORDERED: VANCOMYCIN 1,350 MG in NS 250 ML IV ONE (16:00)
[2018-08-13] MEDS: DUONEB (A & A) INH SCH ×3 (16:22→23:07)
--- NOTE | 2018-08-13 16:22 | HISTORY AND PHYSICAL ---
PRIMARY CARE PROVIDER: Dr. Andrade. ONCOLOGIST: Dr. De Leon. CHIEF COMPLAINT: Fever, cough, and shortness of breath. HISTORY OF PRESENT ILLNESS: Mrs. Boucher is an 87-year-old female with a history of chronic pleural effusions, recurrent pneumonia, hypertension, iron deficiency anemia, who presented to our ER yesterday evening with shortness of breath, fever, malaise x24 hours. She had a low-grade fever of 99.5 with worsening cough and shortness of breath. She came to the ER for evaluation. In the ER she was actually noted to be pancytopenic with a fever of 99.6. She was given broad spectrum antibiotics and Neupogen. Chest x-ray showed chronic pleural effusions, larger on the left, and tiny loculated pneumothorax component associated with the left pleural effusion. She was admitted with neutropenic fever. This morning she is feeling somewhat better. Her white count has gone up to normal range but her hemoglobin, hematocrit, and platelet count have all gone down. She is reporting worsening weight loss and poor p.o. intake. She is overall feeling better though. We are going to admit her for further treatment and evaluation. PAST MEDICAL HISTORY: 1. Recurrent bilateral pleural effusions. 2. History of iron deficiency anemia, requiring iron transfusion, followed by Dr. De Leon. 3. History of diastolic heart failure. 4. Diabetes mellitus, type 2. 5. Hypertension. 6. Hyperlipidemia. 7. Hypothyroidism. 8. Paroxysmal atrial fibrillation. PAST SURGICAL HISTORY: None. SOCIAL HISTORY: Does not smoke, drink, or use illicit substances. She lives with her daughter. FAMILY HISTORY: Noncontributory. REVIEW OF SYSTEMS: A 14-point review of systems was obtained and found to be negative with the exception of the HPI. ALLERGIES: Sulfonamides. HOME MEDICATIONS: Yet to be compiled by the nursing staff. PHYSICAL EXAMINATION: VITAL SIGNS: Blood pressure is 147/65, heart rate 61, respiratory rate 20, O2 saturation 97% on nasal cannula. Temperature is 98.8. GENERAL: This is an elderly and frail appearing 87-year-old female lying in hospital bed, in no acute distress. NEUROLOGICAL: She is awake and alert. Follows commands. No focal deficits. HEENT: Head is atraumatic and normocephalic. Pupils are equal, round and reactive to light. Oral mucosa is dry. NECK: Trachea is midline. CHEST: Decreased with crackles bilaterally. CARDIOVASCULAR: Regular rate and rhythm. S1 and S2 is noted. No murmurs. GASTROINTESTINAL: Soft. Nondistended. Bowel sounds are active. EXTREMITIES: No edema. Pulses are 1+ bilaterally. DIAGNOSTIC DATA: Chest x-ray see HPI. Labs this morning: WBC 9.99, hemoglobin 8.9, hematocrit 28.1, platelet count 78. Sodium 142, potassium 4.5, chloride 102, CO2 30, anion gap 10, BUN 33, creatinine 1, glucose is 96, calcium 8.4, AST is 39, ALT is 17, alkaline phosphatase 218. LDH 29. UA negative. Serology: Flu A, B, and Strep A is negative. ASSESSMENT AND PLAN: 1. Neutropenic fever: Presumably secondary to pneumonia. She has gotten Neupogen in the emergency room. Will continue vancomycin and cefepime. We have ordered blood cultures and sputum cultures. We will check another chest x-ray in the morning. Her vital signs are stable. 2. Presumed pneumonia: Continue antibiotics, breathing treatments, aggressive pulmonary toilet, and check a chest x-ray in the morning. 3. Chronic bilateral pleural effusions: Will follow. Overall they are stable as compared to her previous admission. If no improvement she may need CT and thoracentesis. 4. Pancytopenia: The patient has worsening anemia with worsening thrombocytopenia. We have ordered thyroid function and iron studies. Will transfuse if necessary. 5. Paroxysmal atrial fibrillation: Checking an EKG now. 6. Diabetes mellitus: Will follow patterned sugars and add sliding scale insulin. 7. Deep venous thrombosis prophylaxis with the Eliquis that she is on at home. Dictated by PAULA Delatorre for Pablo Andrade MD cc: PAULA Delatorre MD
--- NOTE | 2018-08-13 17:18 | EKG Report ---
Test Performed on : 08/13/2018 4:32:32 PM Test Reason : DYSPNEA Blood Pressure : / mmHG Vent. Rate : 067 BPM Atrial Rate : 067 BPM P-R Int : 354 ms QRS Dur : 138 ms QT Int : 388 ms P-R-T Axes : 078 248 -14 degrees QTc Int : 409 ms Sinus rhythm. with 1st degree AV block. 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 has replaced Atrial flutter. QRS duration has increased Questionable change in initial forces of Anteroseptal leads T wave inversion less evident in Inferior leads Unconfirmed Result
--- NOTE | 2018-08-13 19:25 | HISTORY AND PHYSICAL ---
ADDENDUM - HISTORY AND PHYSICAL: Patient seen and examined by myself. Full note dictated and discussed with nurse practitioner. Patient presented the hospital with low-grade fever. She does have a known history of cancer. She was noted to be neutropenic. She was given Granix while in the ER. Thankfully, her neutrophil count increased from 0.46 to 4.06. She has had no further fever. At this point, we will keep her in the hospital; however, continue antibiotics. We will recheck labs in the a.m. Await cultures and discharge home if normal. cc: Pablo Andrade MD
[2018-08-14] MEDS: DUONEB (A & A) INH SCH ×4 (03:37→15:00)
[2018-08-14 07:56] LABS: BASO# 0.01 X1000 (0.0-0.2); BASO% 0.1 % (0.0-0.8); EOS# 0.03 X1000 (0.0-0.7); EOS% 0.4 % (0.0-10.0); HEMATOCRIT 27.6 % (37.0-47.0); HEMOGLOBIN 8.6 g/dL (12.0-16.0); IMM GRAN# 0.08 X1000 (0.0-0.04); IMM GRAN% 0.9 % (0.0-0.5); LYMPH# 2.06 X1000 (1.2-3.4); LYMPH% 24.4 % (20.5-51.1); MCH 28.9 PG (27-31); MCHC 31.2 g/dL (33-37); MCV 92.6 FL (81-99); MONO% 7.1 % (1.7-9.3); MPV 10.6 FL (7.4-10.4); NEUT# 5.66 X1000 (1.4-6.5); NEUT% 67.1 % (42.2-75.2); PLT 71 X1000 (130-400); RBC 2.98 XMIL (4.2-5.4); RDW 15.6 % (11.5-14.5); WBC 8.44 X1000 (4.8-10.8)
[2018-08-14 08:03] LABS: AGAP 6; BUN 24 mg/dL (8-22); CALCIUM 7.8 mg/dL (8.8-10.2); CHLORIDE 109 mmol/L (98-107); COSMO 290; CREATININE 0.7 mg/dL (0.5-0.9); ESTIMATED GFR > 60; GLUCOSE 81 mg/dL (70-104); MAGNESIUM 1.8 mg/dL (1.5-2.7); POTASSIUM 3.5 mmol/L (3.5-5.1); SODIUM 144 mmol/L (136-145); TCO2 28 mmol/L (25-35)
[2018-08-14] MEDS ORDERED: MILK OF MAGNESIA PO PRN (08:31)
[2018-08-14] MEDS: MAXIPIME 2 GM in NS 100 ML IV SCH (08:54)
[2018-08-14] MEDS ORDERED: PEPCID PO SCH (09:00)
[2018-08-14] MEDS ORDERED: VITAMIN B-12 SL SCH (09:00)
[2018-08-14] MEDS ORDERED: LASIX PO SCH (09:00)
[2018-08-14] MEDS ORDERED: FISH OIL CONCENTRATE PO SCH (09:00)
[2018-08-14] MEDS ORDERED: ASPIRIN PO SCH (09:00)
[2018-08-14] MEDS ORDERED: ELIQUIS PO SCH (09:00)
[2018-08-14] MEDS ORDERED: KLOR-CON PO SCH (09:00)
[2018-08-14 10:14] LABS: FERRITIN 170 ng/mL (13-150)
[2018-08-14 15:45] VITALS: BP 139/44
--- NOTE | 2018-08-14 16:59 | Diag Imaging Result Doc PS360 ---
EXAM: CHEST-2 VIEWS 08/14/2018 HISTORY: hypoxia TECHNIQUE: PA and lateral chest COMMENT: There is opacity in the left costophrenic angle with elevation of the lateral hemidiaphragm similar in appearance to the previous examination of 08/12/2018. The small pneumothorax which was present at that time is no longer present. There is apical pleural calcification bilaterally. There is some ill-defined opacity in the right right costophrenic angle laterally as well which is unchanged since the previous study. Compared to 12/01/2017 both pleural fluid collections are smaller particularly the left. Overall otherwise are has been very little change. IMPRESSION: Chronic pleural thickening and loculated effusion on the left. Pleural thickening in the right costophrenic sulcus. Mild interstitial fibrosis. Electronically signed by Erik Solis 08/14/2018 4:57 PM
[2018-08-15] MEDS ORDERED: PROTONIX PO SCH (07:00)
[2018-08-15] MEDS ORDERED: SYNTHROID PO SCH (07:00)
--- NOTE | 2018-08-15 10:12 | DISCHARGE SUMMARY ---
ADMISSION DATE: 08/13/2018 DISCHARGE DATE: 08/14/2018 DISCHARGE DIAGNOSIS: Putative pneumonia, although chest x-ray does not completely confirm that. She has a chronic loculated effusion which has been there in August and November. HOSPITAL COURSE: In any case, the patient clinically has improved. Her vital signs improved. She had a little bit of a temperature at 100.5 degrees. That was yesterday morning. Overall, she is improved. She did receive 1 dose of filgrastim for possible pneumonia. Her repeat chest x-ray done today shows the same loculated effusion that was there, small pneumo was gone. Clinically, she looks well. She is afebrile, 99% on room air. I felt she was stable for discharge. She will follow up with Dr. Andrade. So far, everything looked okay. Her white count was stable at 8.4. I did discharge her on antibiotics which is Omnicef 300 p.o. b.i.d. for 7 days. She was given a Combivent inhaler. OTHER DISCHARGE MEDICATIONS: Aspirin 81 daily, vitamin B12 25 daily, Pepcid 20 b.i.d., omega-3 daily, potassium 20 daily, Protonix 40 daily, Synthroid 50 daily, and Lasix 40 daily. RECOMMENDATIONS: Followup chest x-ray in 1 to 2 weeks. Consider pulmonary evaluation. She sees Dr. De Leon as well, although I am a little unclear what he has been following her for, except I guess just iron infusion and she has a history of diastolic heart failure. May need to consider a thoracentesis if she is not much improved. She has had this done previously, although clinically, has overall improved. DISCHARGE CONDITION: Stable. A 32 minute discharge. cc: MD Pablo Bills MD Naveen T. Lobo, MD
[2018-08-15] MEDS ORDERED: VANCOMYCIN 1 GM/NS 1 GM/250 ML IVPB IV SCH (16:00)
== END 2018-08-14 18:48 | disposition home health service (06) | DRG 194 ==
LOC: P.ED 18:24 → P.MEDSURG 18:24 → SUATTDRO 08-13 13:30
PROVIDERS: ATTEND Internal Medicine
CPT/HCPCS: 71020; 71046; 80048; 80053; 81001; 82607; 82728; 82746; 82948; 83540; 83550; 83615; 83735; 85025; 87040; 87081; 87275; 87276; 87430; 87804; 93005; 94640; 94761; 96365; 96366; 96368; 96372; 96375; 99285; A9270; J0692; J1440; J1442; J3370; J7030; J7050; XXXXX

== ENCOUNTER 2018-08-31 14:24 | Inpatient (IN) ==
[2018-08-31] MEDS: ROCEPHIN 1 GM in NS 50 ML IV SCH (15:23)
[2018-08-31] MEDS: FLAGYL 500 MG/NS 500 MG/100 ML IVPB IV SCH ×2 (16:58→22:36)
[2018-08-31 18:42] LABS: BILIRUBIN URINE NEGATIVE (NEGATIVE); BLOOD URINE 1+ (NEGATIVE); CLARITY CLEAR (CLEAR); COLOR YELLOW; GLUCOSE URINE NEGATIVE (NEGATIVE); KETONE URINE NEGATIVE (NEGATIVE); LEUKOCYTES URINE NEGATIVE (NEGATIVE); NITRITE URINE NEGATIVE (NEGATIVE); PROTEIN URINE TRACE mg/dL (NEGATIVE); UROBILINOGEN URINE NORMAL
[2018-08-31 18:48] LABS: URINE SOURCE CLEAN CATCH
[2018-08-31] MEDS: DOXYCYCLINE 100 MG in NS 250 ML IV SCH (18:52)
[2018-08-31 18:55] LABS: URINE BACTERIA NEGATIVE /HFP; URINE CAST NONE SEEN /LPF; URINE CRYSTAL NONE SEEN /HPF; URINE EPITHELIAL CELLS <10 /HPF (<10); URINE RBC <10 /HPF (<10); URINE WBC <10 /HPF (<10); URINE YEAST NONE SEEN /HPF
[2018-09-01] MEDS: FLAGYL 500 MG/NS 500 MG/100 ML IVPB IV SCH ×4 (04:05→22:26)
[2018-09-01] MEDS: DOXYCYCLINE 100 MG in NS 250 ML IV SCH ×2 (06:44→18:31)
--- NOTE | 2018-09-01 07:25 | Diag Imaging Result Doc PS360 ---
CHEST-2 VIEWS - 09/01/2018 INDICATION: Pneumonia COMPARISON: 08/14/2018 FINDINGS: Stable trace right and small left pleural effusions. Stable mild infiltrate in the left lung base. Stable trace infiltrate or fibrosis in the peripheral right lung base. Heart size remains normal. IMPRESSION: No change from prior. Electronically signed by Ambrocio Kim 09/01/2018 7:23 AM
[2018-09-01 07:49] LABS: HEMATOCRIT 27.9 % (37.0-47.0); HEMOGLOBIN 8.6 g/dL (12.0-16.0); MCH 28.8 PG (27-31); MCHC 30.8 g/dL (33-37); MCV 93.3 FL (81-99); RBC 2.99 XMIL (4.2-5.4); RDW 15.2 % (11.5-14.5); WBC 2.45 X1000 (4.8-10.8)
[2018-09-01 08:03] LABS: ALBUMIN 2.8 g/dL (3.5-5.0); CALCIUM 8.3 mg/dL (8.8-10.2); POTASSIUM 3.7 mmol/L (3.5-5.1); TOTAL BILIRUBIN 0.2 mg/dL (0.20-1.00)
[2018-09-01] MEDS ORDERED: ZOFRAN ODT PO PRN (09:09)
[2018-09-01] MEDS ORDERED: MILK OF MAGNESIA PO PRN (09:09)
[2018-09-01] MEDS ORDERED: TYLENOL PO PRN (09:10)
[2018-09-01] MEDS ORDERED: ZOFRAN IV PRN (09:10)
[2018-09-01] MEDS: FOLIC ACID PO SCH ×2 (10:24→10:27)
[2018-09-01] MEDS: LASIX PO SCH (10:24)
[2018-09-01] MEDS: ASPIRIN PO SCH (10:25)
[2018-09-01] MEDS: SYNTHROID PO SCH (10:26)
[2018-09-01] MEDS: ELIQUIS PO SCH ×2 (10:26→21:38)
[2018-09-01] MEDS: CARAFATE PO SCH ×3 (16:05→21:38)
[2018-09-01] MEDS: ROCEPHIN 1 GM in NS 50 ML IV SCH (16:23)
--- NOTE | 2018-09-01 19:25 | PROGRESS NOTE ---
DATE: 09/01/2018 SUBJECTIVE: Patient states she may be feeling a little bit better. She is still having some cough, but denies any fever since admission. Denies any production to her cough. PHYSICAL EXAMINATION: Vital Signs: Reviewed. She is afebrile currently. Blood pressure is stable. Respiratory 20. She is currently on oxygen. General: Patient is awake, alert. She is pleasant to talk with. Appears to be at her baseline. Mild respiratory distress currently. HEENT: Normocephalic. Neck: Supple. Cardiovascular: Regular rate. Chest: Decreased, but equal. No crackles. No wheezing. Abdomen: Soft. Extremities: Moves all extremities. Neurologic: No changes. ASSESSMENT: 1. Nausea and vomiting, appears resolved. 2. Fever. She has been afebrile since admission. 3. History of pancytopenia, stable. 4. Bilateral pleural effusions, stable. PLAN: We will continue the patient in the hospital with antibiotic coverage until cultures are negative, and we will follow. cc: Pablo Andrade MD
--- NOTE | 2018-09-01 19:31 | HISTORY AND PHYSICAL ---
CHIEF COMPLAINT: Fever and cough. HISTORY OF PRESENT ILLNESS: The patient is an 87-year-old female who presented initially to the office with a 2- to 3-day history of cough, congestion, worsening shortness of breath, fever. The patient states that she was just in the hospital with pneumonia and had been feeling well upon discharge for a couple of days and then symptoms started back. Notes she has had fever for the last 2 or 3 days up to 101. SOCIAL HISTORY: Patient is . Lives at home. She is cared for by her daughter, son-in- law. She is retired. Lives in [place]. PAST MEDICAL HISTORY: She has recurrent and current bilateral pleural effusions, history of iron deficiency anemia requiring iron transfusions in the past by Dr. De Leon, diastolic heart failure, diabetes type 2, hypertension, hyperlipidemia, hypothyroidism, paroxysmal atrial fibrillation. FAMILY HISTORY: Noncontributory given her age. REVIEW OF SYSTEMS: As noted above, the patient has had increased cough, congestion, increased work of breathing, increased shortness of breath. For the past couple of days, she has had low- grade fevers. She has been unable to carry out her ADLs without max assistance. Denies any confusion, disorientation. Denies any falling. Denies dysuria, frequency, or urgency. Denies constipation, melena, hematochezia. MEDICATIONS: Do not have a complete accurate list of her home medications. We will adjust when verified. ALLERGIES: Sulfa causing a rash. PHYSICAL EXAMINATION: VITAL SIGNS: Reviewed. She is currently afebrile. Pulse in the 80s, respiratory 22, blood pressure is stable. GENERAL: She is awake, alert, very pleasant to talk with, but is somewhat ill-appearing. HEENT: Normocephalic. NECK: Supple. CARDIOVASCULAR: Regular rate. No murmurs. CHEST: Clear, nonlabored. ABDOMEN: Soft, nondistended. EXTREMITIES: Moves all extremities. ASSESSMENT: 1. Fever in a patient recently with pneumonia. 2. Recent neutropenic fever. 3. Chronic small appears to be stable bilateral pleural effusions. 4. History of pancytopenia. 5. Paroxysmal atrial fibrillation. 6. Diabetes. 7. Advanced age. 8. Febrile illness. PLAN: We will be admit the patient to the hospital, check her labs, place her on antibiotics, breathing treatments, oxygen, and we will follow. cc: Pablo Andrade MD
[2018-09-02] MEDS: FLAGYL 500 MG/NS 500 MG/100 ML IVPB IV SCH ×4 (05:00→22:31)
[2018-09-02] MEDS: PROTONIX PO SCH (06:14)
[2018-09-02] MEDS: DOXYCYCLINE 100 MG in NS 250 ML IV SCH ×2 (06:14→17:21)
[2018-09-02] MEDS: SYNTHROID PO SCH (06:14)
[2018-09-02 07:24] LABS: HEMOGLOBIN 9.1 g/dL (12.0-16.0); MCHC 31.4 g/dL (33-37); MCV 92.4 FL (81-99); RBC 3.14 XMIL (4.2-5.4); RDW 15.3 % (11.5-14.5); WBC 2.57 X1000 (4.8-10.8)
[2018-09-02 08:36] LABS: AGAP 7; ALBUMIN 2.7 g/dL (3.5-5.0); ALKALINE PHOSPHATASE 128 U/L (32-104); BUN 33 mg/dL (8-22); CHLORIDE 105 mmol/L (98-107); COSMO 289; CREATININE 0.8 mg/dL (0.5-0.9); ESTIMATED GFR > 60; GLUCOSE 82 mg/dL (70-104); GOT 21 U/L (10-30); GPT 9 U/L (10-36); POTASSIUM 3.7 mmol/L (3.5-5.1); SODIUM 142 mmol/L (136-145); TCO2 30 mmol/L (25-35); TOTAL PROTEIN 5.2 g/dL (6.3-8.3)
--- NOTE | 2018-09-02 10:19 | PROGRESS NOTE ---
DATE: 09/02/2018 SUBJECTIVE: Patient resting quietly in bed. Denies any problems at this time. States her cough has improved, but she still has a mild one that is nonproductive. OBJECTIVE: Vital Signs: Temperature 97.5 degrees, pulse 50, respirations 17, blood pressure 155/50, satting 100% on 2 L via nasal cannula. General: This is an 87-year-old female, lying in the bed and answers questions appropriately. HENT: Normocephalic, atraumatic. Normal ENT inspection. Oropharynx and nares are clear. Eyes: Pupils are equal, round, reactive to light and accommodation. Extraocular movements are intact. Neck: Normal inspection, normal range of motion. Lungs: Clear to auscultation bilaterally with equal lung expansion, chest wall movement. Heart: Regular rate and rhythm. No murmurs, rubs, or gallops. Abdomen: Soft, nontender, nondistended. Bowel sounds are present x4 quadrants. LABS: Showed a white blood cell count of 2.57, hemoglobin 9.1, hematocrit 29, platelets 105. Sodium 142, potassium 3.7, chloride 105, CO2 30. BUN of 33, creatinine 0.8, glucose of 82. ASSESSMENT: 1. Recent pneumonia. 2. Neutropenic fever, appears to be resolved. 3. History of pancytopenia. 4. Chronic small-appearing stable bilateral pleural effusions. PLAN: We continue the patient in hospital with antibiotic coverage, awaiting on cultures to be resulted. We will recheck a CBC and BMP in the a.m. Dictated by PAULA Gomez for Wil Isabel MD Addendum: Patient seen and examined by myself. Agree with PAULA note. It reflects my assessment and plan. cc: PAULA Gomez MD Gregory S. Cheatham, MD MTDD
[2018-09-02] MEDS: CARAFATE PO SCH ×4 (11:24→21:28)
[2018-09-02] MEDS: VITAMIN B-12 SL SCH (11:25)
[2018-09-02] MEDS: FISH OIL CONCENTRATE PO SCH (11:26)
[2018-09-02] MEDS: FOLIC ACID PO SCH (11:27)
[2018-09-02] MEDS: KLOR-CON PO SCH (11:27)
[2018-09-02] MEDS: ELIQUIS PO SCH ×2 (11:27→21:28)
[2018-09-02] MEDS: LASIX PO SCH (11:27)
[2018-09-02] MEDS: ASPIRIN PO SCH (11:27)
[2018-09-02] MEDS ORDERED: NS 50 ML ONE (13:34)
[2018-09-02] MEDS: ROCEPHIN 1 GM in NS 50 ML IV SCH (17:02)
[2018-09-03] MEDS: FLAGYL 500 MG/NS 500 MG/100 ML IVPB IV SCH ×4 (05:01→23:09)
[2018-09-03] MEDS: PROTONIX PO SCH (06:05)
[2018-09-03] MEDS: SYNTHROID PO SCH (06:05)
[2018-09-03] MEDS: DOXYCYCLINE 100 MG in NS 250 ML IV SCH ×2 (06:05→17:27)
[2018-09-03 08:35] LABS: AGAP 6; BUN 32 mg/dL (8-22); CALCIUM 7.9 mg/dL (8.8-10.2); CHLORIDE 108 mmol/L (98-107); COSMO 293; CREATININE 0.8 mg/dL (0.5-0.9); ESTIMATED GFR > 60; GLUCOSE 85 mg/dL (70-104); POTASSIUM 3.9 mmol/L (3.5-5.1); SODIUM 144 mmol/L (136-145); TCO2 30 mmol/L (25-35)
[2018-09-03 08:38] LABS: BASO# 0.01 X1000 (0.0-0.2); BASO% 0.5 % (0.0-0.8); EOS# 0.04 X1000 (0.0-0.7); EOS% 2.1 % (0.0-10.0); HEMATOCRIT 28.6 % (37.0-47.0); HEMOGLOBIN 9.1 g/dL (12.0-16.0); LYMPH# 1.01 X1000 (1.2-3.4); LYMPH% 52.6 % (20.5-51.1); MCH 29.3 PG (27-31); MCHC 31.8 g/dL (33-37); MONO% 20.8 % (1.7-9.3); MPV 10.8 FL (7.4-10.4); PLT 99 X1000 (130-400); RBC 3.11 XMIL (4.2-5.4); RDW 15.1 % (11.5-14.5); WBC 1.92 X1000 (4.8-10.8)
[2018-09-03 08:45] LABS: NEUT# 0.46 X1000 (1.4-6.5)
[2018-09-03] MEDS: VITAMIN B-12 SL SCH (09:01)
[2018-09-03] MEDS: KLOR-CON PO SCH (09:01)
[2018-09-03] MEDS: FISH OIL CONCENTRATE PO SCH (09:01)
[2018-09-03] MEDS: ELIQUIS PO SCH ×2 (09:02→20:37)
[2018-09-03] MEDS: ASPIRIN PO SCH (09:02)
[2018-09-03] MEDS: LASIX PO SCH (09:03)
[2018-09-03] MEDS: CARAFATE PO SCH ×4 (09:05→20:37)
[2018-09-03 09:15] LABS: EOS 4 % (1-10); LYMPHS 40 % (21-51); MONO 16 % (1-9); SEGS 40 % (42-75)
[2018-09-03 09:17] LABS: OVALOCYTES OCCASIONAL; POIKILOCYTOSIS OCCASIONAL
[2018-09-03] MEDS: FOLIC ACID PO SCH (13:41)
[2018-09-03] MEDS: ROCEPHIN 1 GM in NS 50 ML IV SCH ×2 (13:42→15:16)
[2018-09-03] MEDS ORDERED: GRANIX SUBQ ONE (16:35)
--- NOTE | 2018-09-03 18:45 | PROGRESS NOTE ---
DATE: 09/03/2018 SUBJECTIVE: The patient notes that she is better, she is afebrile. Her cough has improved. PHYSICAL: Vital Signs: Reviewed. She is afebrile. Blood pressure stable, heart rate stable, respiratory 20. General: Patient is elderly appearing frail female who is in no current respiratory distress. HEENT: Normocephalic. Neck: Supple. CV: Regular rate. Chest: Clear, nonlabored. Abdomen: Soft, nondistended. Extremities: Moves all extremities. ASSESSMENT: 1. Neutropenia. Her absolute neutrophil count is less than 500, her white count is 1.6. We will give her Granix. Unfortunately she has had several shots in the past each time when she was sick. 2. Febrile illness currently has improved. We will continue antibiotics given her neutropenia. PLAN: Will continue patient in the hospital, will add Granix, will recheck. Further orders. cc: Pablo Andrade MD
[2018-09-04] MEDS: FLAGYL 500 MG/NS 500 MG/100 ML IVPB IV SCH (05:26)
[2018-09-04] MEDS: DOXYCYCLINE 100 MG in NS 250 ML IV SCH (06:33)
[2018-09-04] MEDS: SYNTHROID PO SCH (06:33)
[2018-09-04] MEDS: PROTONIX PO SCH (06:33)
--- NOTE | 2018-09-04 07:31 | Diag Imaging Result Doc PS360 ---
EXAM: CHEST-2 VIEWS HISTORY: hypoxia TECHNIQUE: Chest two views COMPARISON: 06/03/2018 FINDINGS: The lungs are hyperexpanded with an increased AP diameter to the chest. There is a small to moderate left pleural effusion with a tiny right effusion. No cardiomegaly. There are infiltrates in the lower lungs as well as left basilar atelectasis. IMPRESSION: No interval improvement. Electronically signed by Charles Guevara 09/04/2018 7:29 AM
[2018-09-04 07:34] VITALS: BP 153/38
[2018-09-04 08:23] LABS: BASO# 0.01 X1000 (0.0-0.2); BASO% 0.1 % (0.0-0.8); EOS# 0.04 X1000 (0.0-0.7); EOS% 0.3 % (0.0-10.0); HEMATOCRIT 30.2 % (37.0-47.0); HEMOGLOBIN 9.5 g/dL (12.0-16.0); IMM GRAN# 0.08 X1000 (0.0-0.04); IMM GRAN% 0.7 % (0.0-0.5); LYMPH# 1.56 X1000 (1.2-3.4); LYMPH% 13.6 % (20.5-51.1); MCH 29.2 PG (27-31); MCHC 31.5 g/dL (33-37); MCV 92.9 FL (81-99); MONO# 1.21 X1000 (0.11-0.59); MONO% 10.5 % (1.7-9.3); MPV 10.9 FL (7.4-10.4); NEUT# 8.61 X1000 (1.4-6.5); NEUT% 74.8 % (42.2-75.2); PLT 94 X1000 (130-400); RBC 3.25 XMIL (4.2-5.4); RDW 15.5 % (11.5-14.5); WBC 11.51 X1000 (4.8-10.8)
[2018-09-04 08:39] LABS: ALBUMIN 2.9 g/dL (3.5-5.0); CALCIUM 8.1 mg/dL (8.8-10.2); CREATININE 0.9 mg/dL (0.5-0.9); TOTAL BILIRUBIN 0.4 mg/dL (0.20-1.00); TOTAL PROTEIN 5.3 g/dL (6.3-8.3)
[2018-09-04 08:48] LABS: BANDS 1 % (0-1); LYMPHS 15 % (21-51); MONO 9 % (1-9); SEGS 75 % (42-75)
[2018-09-04] MEDS: VITAMIN B-12 SL SCH (09:17)
[2018-09-04] MEDS: FISH OIL CONCENTRATE PO SCH (09:17)
[2018-09-04] MEDS: KLOR-CON PO SCH (09:18)
[2018-09-04] MEDS: LASIX PO SCH (09:18)
[2018-09-04] MEDS: ASPIRIN PO SCH (09:18)
[2018-09-04] MEDS: FOLIC ACID PO SCH (09:18)
[2018-09-04] MEDS: ELIQUIS PO SCH (09:18)
[2018-09-04] MEDS: CARAFATE PO SCH ×2 (09:18→11:20)
--- NOTE | 2018-09-09 08:14 | DISCHARGE SUMMARY ---
ADMISSION DATE: 08/31/2018 DISCHARGE DATE: 09/04/2018 DISCHARGE DIAGNOSES: 1. Pneumonia, improved. 2. Fever, resolved. 3. Neutropenia, resolved. 4. Shortness of breath. 5. Diabetes. 6. Hypertension. 7. Hyperlipidemia. 8. Hypothyroidism. 9. Paroxysmal atrial fibrillation. 10. Advanced age. CONSULTATIONS: None. PROCEDURES: None. BRIEF HOSPITAL COURSE: The patient is an 87-year-old female who presented to the ER secondary to nausea and vomiting with fever. She states she has been unable to keep anything down. She had a fever, cough, congestion, and was subsequently diagnosed with pneumonia. She was placed in the hospital. Upon checking labs, she was noted to be neutropenic. She was given Granix, which thankfully improved her white blood cell count. As her fever and neutropenia resolved, she was discharged home. DISPOSITION: Patient will be discharged home. She will follow up outpatient in 1 week to recheck her blood counts. We will continue antibiotics and continue her other home medications. cc: Pablo Andrade MD
== END 2018-09-04 11:38 | disposition home health service (06) | DRG 194 ==
LOC: SUATTDRO 14:24 → P.DIRADM 14:24 → P.MEDSURG 14:34
PROVIDERS: ADMIT Family Medicine; ATTEND Family Medicine
CPT/HCPCS: 71020; 71046; 80048; 80053; 81001; 82948; 85025; 85027; 87040; 94761; 94799; A9270; J0696; J1446; J1447; J7050; S0030; XXXXX